=== PATIENT | male | born 1970 | race Caucasian/White ===

== ENCOUNTER 2019-04-18 17:57 | Emergency (ER) | payer MEDICARE ==
[2019-04-18 18:28] LABS: BASOPHIL % 0.5 % (0.0-0.4); Basophil (Absolute #) 0.04 (0-0.4); Eosinophil (Absolute #) 0.56 (0-0.5); Granulocyte Absolute (ANC) 3.94 (1.4-6.9); Granulocytes % 49.5 % (36.0-66.0); Hemoglobin 15.3 gm/dl (12.5-18.0); Lymphocyte (Absolute #) 2.96 (1.0-4.6); Lymphocytes % 37.1 % (24.0-44.0); Mean Cell Volume 84.5 fl (78-100); Mean Corpuscular Hemoglobin 29.4 pg (26-32); Mean Corpuscular Hgb Concent. 34.8 g/dl (32-36); Mean Platelet Volume 9.1 fl (6-9.5); Monocyte (Absolute #) 0.47 (0.0-1.3); Monocytes % 5.9 % (0.0-12.0); Platelet Count 356 K/mm3 (150-450); Red Blood Count 5.21 M/mm3 (4.1-5.6); Red Cell Distribution Width 13.4 % (11.5-14.0)
--- NOTE | 2019-04-18 18:44 | ERPHSYRPT ---
- History of Present Illness Source: patient, family Exam Limitations: no limitations Patient Subjective Stated Complaint: left sided facial weakness, left sided facial droop, hx of dystonia, Triage Nursing Assessment: Pt walked into the ER with no difficulties, hypertenstive, no difficulties with strength, left side of face droops, left side of face numb, feels right leg more than the left, feels bilateral arms the same, had dystonia storms all night long, PERRL, Timing/Duration: today Severity: mild Character of Deficits: new weakness, altered sensation, Left Facial Deficits: no difficulties <SHERIF HURSTYESH - Last Filed: 04/18/19 18:46> <WICHO BETANCOURT - Last Filed: 04/18/19 20:05> - History of Present Illness Time Seen by Provider: 04/18/19 18:40 Physician History: 49-year-old male came to the emergency room has a significant past medical history of dystonia started having left-sided facial weakness and numbness on the left side of the body. Patient has also been suffering from dental abscess for which he has been taking some antibiotics. Patient denies any loss of bladder or bowel function. (NATALI,ALYSSIA) Allergies/Adverse Reactions: gabapentin Adverse Reaction (Verified 04/18/19 18:31) Home Medications: Bupropion HCl Xl 150 mg [Wellbutrin XL 150 MG] 150 mg PO BID 04/18/19 [ History] Clindamycin HCl 300 mg PO TID 04/18/19 [History] Diazepam [Valium] 2 mg PO TID 04/18/19 [History] Ezetimibe 10 mg PO DAILY 04/18/19 [History] Furosemide 40 mg PO DAILY 04/18/19 [History] Hydrocodone Bit/Acetaminophen [Hydrocodon-Acetaminoph 7.5-325] 1 each PO QID [History] Lisinopril/Hydrochlorothiazide [Lisinopril-Hctz 10-12.5 mg Tab] 1 tab PO DAILY 04/18/19 [History] Naproxen 500 mg PO BID PRN 04/18/19 [History] Omeprazole 40 mg PO DAILY 04/18/19 [History] Oxybutynin Chloride [Oxybutynin Chloride ER] 15 mg PO DAILY 04/18/19 [History] Potassium Chloride 10 meq PO DAILY 04/18/19 [History] Pravastatin Sodium 40 mg PO HS 04/18/19 [History] Sertraline HCl 100 mg PO DAILY 04/18/19 [History] Tizanidine HCl 4 mg [Zanaflex 4 MG] 4 mg PO TID 04/18/19 [History] - Review of Systems Constitutional: No Fever, No Chills Eyes: No Symptoms Ears, Nose, & Throat: No Symptoms Respiratory: No Cough, No Dyspnea Cardiac: No Chest Pain, No Edema, No Syncope Abdominal/Gastrointestinal: No Abdominal Pain, No Nausea, No Vomiting, No Diarrhea Genitourinary Symptoms: No Dysuria Musculoskeletal: No Back Pain, No Neck Pain Skin: No Rash Neurological: No Dizziness, No Focal Weakness, No Sensory Changes Psychological: No Symptoms Endocrine: No Symptoms All Other Systems: Reviewed and Negative <NATALI,ALYSSIA - Last Filed: 04/18/19 18:46> - Past Medical History Neurological History: Other Cardiac History: High Cholesterol, Hypertension Musculoskeletal History: Other Psycho-Social History: Anxiety, Depression Other Medical History: dystonia - Past Surgical History Past Surgical History: No - Social History Smoking Status: Current every day smoker How long have you smoked: 20 years Exposure to second hand smoke: Yes Drug Use: none Patient Lives Alone: Yes <NATALI, - Last Filed: 04/18/19 18:46> - Jacquie Coma Scale Best Eye Response ([place]): (4) open spontaneously Best Verbal Response ([place]): (5) oriented Best Motor Response ([place]): (6) obeys commands [place] Total: 15 - Physical Exam General Appearance: no apparent distress, alert Eye Exam: bilateral eye: PERRL, EOMI Ears, Nose, Throat Exam: normal ENT inspection, moist mucous membranes Neck Exam: normal inspection, non-tender, supple Respiratory: normal breath sounds, lungs clear, airway intact, No respiratory distress Cardiovascular: regular rate/rhythm, No edema Gastrointestinal: soft, No tenderness, No distention Back Exam: normal inspection Extremity Exam: normal inspection, No pedal edema Mental Status: alert, oriented x 3 baseball player Exam: normal speech, PERRL, facial droop, facial paresthesias, facial weakness, tongue midline Coordination/Gait: normal finger to nose, normal gait Motor/Sensory: no motor deficit, sensory deficit Skin Exam: normal color, warm, dry, No rash SpO2: 98 <ALYSSIA HURST - Last Filed: 04/18/19 18:46> - Nursing Vital Signs Nursing Vital Signs: Initial Vital Signs Temperature 98.2 F 04/18/19 18:15 Pulse Rate 89 04/18/19 18:15 Blood Pressure 154/88 04/18/19 18:15 O2 Sat by Pulse Oximetry 98 04/18/19 18:15 Pain Scale Pain Intensity 0 - Course Nursing assessment & vital signs reviewed: Yes EKG Interpreted by Me: Sinus Rhythm - CT Exams Head CT Interpretation: Tele-radiologist Report <ARMEN HURSTSH - Last Filed: 04/18/19 18:46> - Course EKG Interpreted by Me: RATE (86 bpm), Sinus Rhythm, NORMAL AXIS, Other (EKG: Sinus rhythm, 86 beats per minute, normal axis, no acute ST or T wave changes, normal EKG) - CT Exams Head CT Interpretation: Tele-radiologist Report (head CT no acute intracranial abnormality) <WICHO BETANCOURT - Last Filed: 04/18/19 20:05> Ordered Tests: Active Orders 24 hr Category Date Time Status Cooler Tender STAT Care 04/18/19 18:14 Active EKG-ER Only STAT Care 04/18/19 18:12 Active HEAD WITHOUT CONTRAST [CT] Stat Exams 04/18/19 18:44 Taken CBC W DIFF Stat Lab 04/18/19 18:25 Completed CMP Stat Lab 04/18/19 18:25 Completed Lactic Acid Stat Lab 04/18/19 18:23 Completed MAGNESIUM Stat Lab 04/18/19 18:25 Completed TROPONIN Stat Lab 04/18/19 18:25 Completed UA W/RFX UR CULTURE Stat Lab 04/18/19 18:13 Ordered Urine Triage Profile Stat Lab 04/18/19 18:13 Ordered Lab/Rad Data: Laboratory Result Diagrams 04/18/19 18:25 04/18/19 18:25 Laboratory Results 04/18/19 04/18/19 04/18/19 Range/Units 18:25 18:25 18:23 WBC 8.0 (4.0-10.5) K/mm3 RBC 5.21 (4.1-5.6) M/mm3 Hgb 15.3 (12.5-18.0) gm/dl Hct 44.0 (42-50) % MCV 84.5 (78-100) fl MCH 29.4 (26-32) pg MCHC 34.8 (32-36) g/dl RDW 13.4 (11.5-14.0) % Plt Count 356 (150-450) K/mm3 MPV 9.1 (6-9.5) fl Gran % 49.5 (36.0-66.0) % Eos # (Auto) 0.56 H (0-0.5) Absolute Lymphs (auto) 2.96 (1.0-4.6) Absolute Monos (auto) 0.47 (0.0-1.3) Lymphocytes % 37.1 (24.0-44.0) % Monocytes % 5.9 (0.0-12.0) % Eosinophils % 7.0 H (0.00-5.0) % Basophils % 0.5 (0.0-0.4) % Absolute Granulocytes 3.94 (1.4-6.9) Basophils # 0.04 (0-0.4) Sodium 140 (137-145) mmol/L Potassium 3.7 (3.5-5.1) mmol/L Chloride 106 (98-107) mmol/L Carbon Dioxide 23 (22-30) mmol/L Anion Gap 14.4 (5-15) MEQ/L BUN 14 (9-20) mg/dL Creatinine 0.91 (0.66-1.25) mg/dL Estimated GFR > 60.0 ML/MIN Glucose 132 H (74-106) mg/dL Lactic Acid 1.1 (0.4-2.0) Calcium 9.4 (8.4-10.2) mg/dL Magnesium 1.8 (1.6-2.3) mg/dL Total Bilirubin 0.40 (0.2-1.3) mg/dL AST 32 (17-59) U/L ALT 51 H (0-50) U/L Alkaline Phosphatase 79 (38-126) U/L Troponin I < 0.012 (0.000-0.034) ng/mL Serum Total Protein 8.3 H (6.3-8.2) g/dL Albumin 4.6 (3.5-5.0) g/dL <NATALI,ALYSSIA - Last Filed: 04/18/19 18:46> - Progress Progress: improved <WICHO BETANCOURT - Last Filed: 04/18/19 20:05> - Progress Progress Note: 04/18/19 19:19 49-year-old white male with history of hypercholesterolemia, high blood pressure , anxiety, depression who states he had dystonia on the right side of his face recently. Patient arrives with complaint of left facial droop and left-sided facial numbness symptoms since 9:00 this morning he states he woke up this way. He states he had some problems swallowing he did have some slurry speech which seems to have cleared. He has not had any problems moving any of his extremities. Patient initially seen by Dr. Hurst CT of the head has been obtained CBC is obtained CMP troponin UA head CT results are pending. Past medical history includes hypercholesterolemia, high blood pressure, anxiety , depression, dystonia. Past surgical history is negative. Patient states he is not on any anticoagulants other than he takes a nonsteroidal anti-inflammatory. 04/18/19 19:21 Physical examination well-developed well-nourished white male he has a left facial droop of the corner of his mouth he has sparing of fore head. Eyes PERRLA EOMI fundi unremarkable, Ears TMs bazan intact bilaterally, Nose clear, Throat clear, Neck supple full range of motion, Lungs clear, Heart regular rate and rhythm without murmur, Abdomen soft nontender nondistended positive bowel sounds, Extremities full range of motion pulse expressible two over four, Neuro cranial nerves II through XII are intact he does have drooping of the left side of his mouth sparing of the fore head as noted above, Customer Experience Strategist equal and symmetrical 5 over 5 normal finger to nose no pronator drift, Full range of motion to all extremities, Speech is normal, Jacquie Coma Scale is 15, Sensation intact all extremities, plan awaiting CT of the head results Will obtain EKG results and review labs. Will consider telling neuro consult on this patient. 04/18/19 20:02 Patient's EKG normal sinus rhythm. Patient's head CT no acute intracranial findings. Patient's other labs essentially normal. 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 He does not recommend any aspirin at this time work thrombolytics. He feels that the patient can be discharged and to followup with family doctor/ neurologist. He did recommend we obtain a lyme titer on this patient. (WICHO BETANCOURT) <ALYSSIA HURST - Last Filed: 04/18/19 18:46> - Departure Departure Disposition: Home Critical Care Time: No <WICHO BETANCOURT - Last Filed: 04/18/19 20:05> - Departure Clinical Impression: Carrillo's palsy, left facial droop Condition: Fair Referrals: Provider,Unknown [Primary Care Provider] - Additional Instructions: Return home. Plenty of fluids. Followup with your neurologist or family DrKaren (list) call and make an appointment. Return for acute distress or for severe symptoms.
[2019-04-18 18:52] LABS: ALBUMIN 4.6 g/dL (3.5-5.0); ALKALINE PHOSPHATASE 79 U/L (38-126); ANION GAP 14.4 MEQ/L (5-15); BLOOD UREA NITROGEN 14 mg/dL (9-20); CHLORIDE 106 mmol/L (98-107); Calcium 9.4 mg/dL (8.4-10.2); Carbon Dioxide 23 mmol/L (22-30); Creatinine 1 0.91 mg/dL (0.66-1.25); Glucose 132 mg/dL (74-106); MAGNESIUM 1.8 mg/dL (1.6-2.3); Potassium 3.7 mmol/L (3.5-5.1); SGOT/AST 32 U/L (17-59); SGPT/ALT 51 U/L (0-50); SODIUM 140 mmol/L (137-145); Total Protein 8.3 g/dL (6.3-8.2)
[2019-04-18 19:38] LABS: TROPONIN < 0.012 ng/mL (0.000-0.034)
[2019-04-18 20:22] VITALS: BP 117/62; PULSE 78; O2SAT 99
--- NOTE | 2019-04-19 09:26 | XRAY ---
Exam: CT of the head without IV contrast from 04/18/2019. CTDI: 67.80 Comparison: None. Indication: 49-year-old male with left-sided facial weakness/numbness that began this morning. Technique: Non-IV contrast axial images were obtained through the brain. Reconstructed coronal and sagittal images were created and reviewed. Findings: The ventricles appear of normal size and configuration. No focal mass effect or midline shift is seen. I see no acute intracranial bleed or abnormal extra-axial fluid collection. Finley matter-white matter differentiation appears preserved. No low attenuation areas are seen to suggest an acute or subacute territorial infarct. The cortical sulci and basilar cisterns appear unremarkable. Calcification is seen within the anterior aspect of the falx. The globes of each eye and the retrobulbar areas appear unremarkable. Mild mucosal thickening is seen at the anterior aspect of the right maxillary sinus, and moderate mucosal thickening is seen at the posterior lateral margin of the right maxillary sinus. The remainder of the paranasal sinuses appears clear. No air-fluid levels are seen. The mastoid air cells are well aerated without effusion. The middle ear cavities appear grossly unremarkable. The calvarium of the skull appears intact. Impression: 1. No acute intracranial bleed or other acute intracranial process is seen. 2. Mild/moderate chronic mucosal thickening is seen within the right maxillary sinus. There is no paranasal sinus air-fluid level or central sinus opacification.
[2019-04-20 12:42] LABS: LYME TOTAL WB TOTAL 0.13 index (0.00-0.90)
== END 2019-04-18 20:23 | disposition home or self-care (01) ==
LOC: ED 17:57
DX: G51.0 Bell's palsy (principal); R29.810 Facial weakness; I10 Essential (primary) hypertension; E78.00 Pure hypercholesterolemia, unspecified; F41.9 Anxiety disorder, unspecified; F32.9 Major depressive disorder, single episode, unspecified; G24.9 Dystonia, unspecified; Z79.899 Other long term (current) drug therapy
CPT/HCPCS: 36415; 70450; 80053; 83605; 83735; 84484; 85025; 86617; 86618; 93005; 93041; 99284